=== PATIENT | male | born 1995 | race Caucasian/White ===

== ENCOUNTER 2020-04-17 23:33 | Emergency (ER) | payer OTHER, MEDICAID, SELFPAY ==
[2020-04-17 23:35] VITALS: BP 154/71; PULSE 107; RESP 16; TEMP 36.7; O2SAT 97; BMI 21.7
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
[2020-04-17 23:57] VITALS: BP 111/59; PULSE 73; RESP 14; O2SAT 96
[2020-04-18 01:45] VITALS: BP 110/88; PULSE 96; RESP 18; O2SAT 96
== END 2020-04-18 01:47 | disposition home or self-care (01) ==
PROVIDERS: Emergency Provider Physician Assistant
DX: S29.012A Strain of muscle and tendon of back wall of thorax, initial encounter (principal); S16.1XXA Strain of muscle, fascia and tendon at neck level, initial encounter; V89.2XXA Person injured in unspecified motor-vehicle accident, traffic, initial encounter
CPT/HCPCS: 12345; 70450; 72125; 72128; 72131; 99282; 99283

== ENCOUNTER 2020-07-04 21:49 | Emergency (ER) | payer MEDICAID, SELFPAY ==
[2020-07-04 22:28] VITALS: BP 126/75; PULSE 68; RESP 16; TEMP 36.8; O2SAT 98; BMI 23.0
--- NOTE | 2020-07-04 22:48 | ED_ITS ---
HPI - COVID General: Chief Complaint: COVID symptoms Stated Complaint: covid symptoms/sob Time Seen by Provider: 07/04/20 22:33 Triage information: Has fever, cough or shortness of breath . Exposure to COVID + person last 14 days History of Present Illness: HPI Narrative: Patient is a 24-year-old male comes to the ED exposure to Covid positive patient. Patient says that one of his close family members was diagnosed with Covid today and he has been in contact with Covid positive patient multiple times in the past week at his home. The only symptoms he reports are some fatigue he had mild episodes of shortness of breath. COVID 19 common symptoms: positive dyspnea (Episodic and mild), fatigue and headache(s) (mild); negative fever(s), chills, non-productive cough, productive cough, throat pain, nasal congestion, nausea, vomiting or diarrhea COVID 19 other sytmptoms: negative chest pain COVID Results: SARS-CoV-2 RNA (RT-PCR) Pending 07/04/20 23:10 07/04/20 Review of Systems Const: Reports: fatigue; Denies: fever(s) or chills Eyes: Denies: change in vision or eye discomfort ENMT: Denies: throat pain, odynophagia, nasal discharge or nasal congestion Card: Denies: chest pain, palpitations, edema, swelling of feet/ankles, dyspnea on exertion or orthopnea Resp: Reports: dyspnea (Episodic and mild); Denies: productive cough or non-productive cough GI: Denies: abdominal pain, nausea, vomiting, diarrhea, constipation or hematochezia : Denies: flank pain, difficulty urinating, dysuria or hematuria Musc: Denies: neck pain, back pain or extremity swelling Skin/Breast: Denies: rash or new lesions Neuro: Reports: headache(s) (mild); Denies: numbness in extremities or weakness in extremities PFSH ED PFSH: Social History Smoking and tobacco status: never smoked Alcohol intake: never Physical Exam Const: COMMON NORMALS: no acute distress, patient oriented x3, healthy appearing and alert GENERAL APPEARANCE: cooperative and comfortable HENMT: COMMON NORMALS: normocephalic HEAD & SCALP: normocephalic MOUTH: Normal oral and palatal mucosa present THROAT: posterior oropharynx normal and uvula midline Neck/C-Spine: COMMON NORMALS: supple GENERAL: Yes normal visual inspection Resp: COMMON NORMALS: normal respiratory effort, No retractions, No use of accessory muscles and clear to auscultation bilaterally EFFORT & INSPECTION: Yes able to speak in complete sentences, No tachypneic, No respiratory distress and No Actively coughing AUSCULTATION: clear to auscultation bilaterally Cardio: COMMON NORMALS: regular rate, regular rhythm, S1 normal heart sound present, S2 normal heart sound present, No gallops present (Cardio), No clicks present (Cardio), No murmurs present (Cardio) and Peripheral pulses 2+ throughout RATE: regular rate RHYTHM: regular rhythm HEART SOUNDS: S1 normal heart sound present and S2 normal heart sound present PERIPHERAL PULSES: Peripheral pulses 2+ throughout GI: COMMON NORMALS: Normal to inspection, nondistended, normoactive bowel sounds present, Soft to palpation, non-tender and no masses PALPATION: Yes Soft to palpation : COMMON NORMALS: Yes no CVA tenderness BLADDER/KIDNEY EXAM: Yes no CVA tenderness Back/Pelvis: COMMON NORMALS: no CVA tenderness Extremity: COMMON NORMALS: normal to inspection and no pedal edema Neuro: COMMON NORMALS: patient oriented x3 and moves all extremities SENSORIUM/ORIENTATION: Yes alert Skin: GENERAL SKIN EXAM: dry skin Course ED course: Patient is a 24-year-old male who comes to the ED after being exposed to a positive COVID-19 patient. He has had multiple interactions with positive Covid patient in the past week. Reports having some symptoms of fatigue and symptoms shortness of breath. Physical exam was unremarkable and patient's lungs were clear to auscultation bilaterally with no active coughing seen or tachypnea. Patient appears healthy. Temp 98.2 O2 sat 98% on room air. Respirations 16. Patient was given COVID-19 test and discharged. He was told to self quarantine for the next 3 to 14 days pending results. Return to ED precautions given. Sent patient home with an albuterol inhaler to help with any shortness of breath or wheezing. Patient understood and agreed with plan. Vital Signs: Vital signs: Vital Signs Temperature 98.2 F 07/04/20 22:28 Pulse Rate 67 07/04/20 23:55 Respiratory Rate 16 07/04/20 23:55 Blood Pressure 123/60 07/04/20 23:55 Pulse Oximetry 98 07/04/20 23:55 MDM - COVID Lab Data COVID Results: SARS-CoV-2 RNA (RT-PCR) Pending 07/04/20 23:10 07/04/20 Discharge Plan Discharge Patient Disposition: Home Clinical Impression: Close exposure to COVID-19 virus Condition: Stable Prescriptions: New albuterol sulfate 90 mcg/actuation aerosol powdr breath activated 2 inh INHALATION Q6H PRN (Reason: shortness of breath or wheezing) Qty: 1 RF: 0 No Action cephalexin [Keflex] 500 mg capsule 500 mg PO BID 10 Days Qty: 20 RF: 0 nystatin 100,000 unit/mL suspension 1 ml BUCCAL TID 7 Days Qty: 21 RF: 0 cyclobenzaprine 10 mg tablet 10 mg PO TID Qty: 14 RF: 0 ibuprofen 800 mg tablet 800 mg PO Q8H PRN (Reason: pain) Qty: 20 RF: 0 Discharge Orders: Discharge Order (Routine); Ordered 07/04/20 Ordered By: Sandor Powers Discharge Diet: Regular Discharge Activity: Limit activity as instructed Activity Restrictions/Additional Instructions: Follow-up with medical provider as directed in 7-10 days. COVID testing was performed and sent to lab and results will be back in 2 to 3 days. Self quarantine for the next 3 days or up to 12 days pending on COVID testing results. Contact [facility] in 2 to 3 days to get results or [facility] will contact you with results. Take ibuprofen or Tylenol for fevers. Drink plenty of fluids and stay hydrated. Symptom management with [id number] cough and nasal decongestant meds. Return to the ER or your medical provider if condition worsens. Please read and understand discharge instructions. If any questions, please ask. Discharge Date/Time: 07/04/20 23:56 Coding Level of Care Code ED Supervisor Fertilizer Processing for Nik Marquez Exam Comprehensive
[2020-07-04 23:03] VITALS: BP 123/60; PULSE 67; RESP 16; O2SAT 98
[2020-07-04 23:55] VITALS: BP 123/60; PULSE 67; RESP 16; O2SAT 98
[2020-07-06 20:27] LABS: Quest SARS-CoV-2 RNA NOT DETECTED (NOT DETECTED)
--- NOTE | 2020-07-07 09:03 | PC.NURSE ---
Patient notified of COVID results at this time.
== END 2020-07-04 23:56 | disposition home or self-care (01) ==
PROVIDERS: Emergency Provider Physician Assistant
DX: Z20.828 Contact with and (suspected) exposure to other viral communicable diseases (principal)
CPT/HCPCS: 12345; 87635; 99282

== ENCOUNTER 2020-11-01 18:05 | Emergency (ER) | payer OTHER, SELFPAY ==
[2020-11-01 18:10] VITALS: BP 162/72; PULSE 88; PULSE 90; RESP 14; RESP 18; TEMP 36.8; O2SAT 97; O2SAT 98; BMI 25.0
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
[2020-11-01 18:42] LABS: Basophils % 0.2 %; Eosinophils # 0.1 10^3/uL (0.0-0.8); Eosinophils % 1.1 %; Hematocrit 43.4 % (42.0-52.0); Hemoglobin 15.3 g/dL (11.7-16.6); Lymphocytes # 1.9 10^3/uL (0.8-4.8); Lymphocytes % 30.4 %; Mean Corpuscular HGB Conc 35.3 g/dL (30.0-36.0); Mean Platelet Volume 11.1 fL (7.4-10.4); Monocytes # 0.5 10^3/uL (0.2-0.9); Monocytes % 8.1 %; Neutrophils # 3.69 10^3/uL (1.8-7.7); Neutrophils % 59.9 %; Nucleated Red Blood Cells % 0 %; Platelet Count 164 10^3/cmm (130-400); Red Blood Count 4.93 10^6/uL (4.1-5.3); Red Cell Distribution Width 11.4 % (12.1-15.1); White Blood Count 6.2 10^3/uL (4.0-10.0)
[2020-11-01 18:59] LABS: INR 1.01 (0.8-1.2)
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
[2020-11-01 19:05] LABS: Alanine Aminotransferase 24 U/L (0-41); Albumin Level 4.4 g/dL (3.5-5.2); Alkaline Phosphatase 78 IU/L (40-130); Anion Gap 11.4 (5-19); Aspartate Amino Transferase 22 U/L (0-40); Blood Urea Nitrogen 13 mg/dL (6-20); Calcium 9.1 mg/dL (8.5-10.5); Carbon Dioxide 27 mmol/L (22-29); Chloride 103 mmol/L (98-107); Globulin 2.8 g/dL (1.3-4.6); Glomerular Filtration Rate 105.5 mL/min (90-130); Glucose 96 mg/dL (65-115); Osmolality Calculated 286 mOsm/kg (285-295); Potassium 3.4 mmol/L (3.5-5.1); Sodium 138 mmol/L (136-145); Total Bilirubin 0.2 mg/dL (0.15-1.2); Total Protein 7.2 g/dL (6.6-8.7)
[2020-11-01] MEDS: acetaminophen 500 mg Tablet 1000 MG PO (19:12)
[2020-11-01 20:01] LABS: Add Urine Microscopic? NO
[2020-11-01 20:09] LABS: Bilirubin Urine Neg (Negative); Blood Urine Neg (Negative); Glucose Urine UA Norm (Normal); Ketones Urine Negative (Negative); Leukocyte Esterase Urine Negative (Negative); Nitrate Urine Negative (Negative); Protein Urine Neg (Negative); Sulfosalicylic Acid Urine Negative (Negative); Urine Appearance Clear (CLEAR); Urine Color Yellow (Yellow); Urobilinogen Urine Norm (Negative); pH Urine 8 (5-7)
[2020-11-01 20:17] VITALS: BP 131/71; PULSE 98; RESP 16; O2SAT 98
== END 2020-11-01 20:18 | disposition home or self-care (01) ==
PROVIDERS: Emergency Provider Family Medicine
DX: S13.4XXA Sprain of ligaments of cervical spine, initial encounter (principal); S06.0X0A Concussion without loss of consciousness, initial encounter; S29.012A Strain of muscle and tendon of back wall of thorax, initial encounter; S39.012A Strain of muscle, fascia and tendon of lower back, initial encounter; V89.2XXA Person injured in unspecified motor-vehicle accident, traffic, initial encounter
CPT/HCPCS: 12345; 70450; 72070; 72072; 72100; 72125; 80053; 81003; 85025; 85610; 99281; 99283

== ENCOUNTER 2020-11-23 12:37 | Outpatient (RCR) | payer OTHER, SELFPAY | END 2020-12-21 23:59 | disposition home or self-care (01) | LOC: SPT 12:37 | PROVIDERS: PCP Family Medicine; Referring Provider Nurse Practitioner Family; Visit Provider Nurse Practitioner Family | DX: S16.1XXD Strain of muscle, fascia and tendon at neck level, subsequent encounter (principal); X58.XXXD Exposure to other specified factors, subsequent encounter | CPT/HCPCS: 97161 ==

== ENCOUNTER 2021-04-16 17:15 | Emergency (ER) | payer BC, MEDICAID, SELFPAY ==
[2021-04-16 17:44] VITALS: BP 148/87; PULSE 62; RESP 19; TEMP 37.2; O2SAT 98; BMI 27.1
[2021-04-16 18:18] VITALS: BP 137/59; PULSE 65; RESP 18; O2SAT 97
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
--- NOTE | 2021-04-16 18:31 | ECG_ITS ---
[facility] ED Test Date: 2021-04-16 Pat Name: Omar Murphy Department: Room: Gender: Male [employer] Head: : 1995 Requested By: Maximo Gibbons Order Number: [id number] Jaquez MD: Corazon Rodriguez M.D. Measurements Intervals [place] Rate: 67 P: 44 IN: 204 QRS: 44 QRSD: 94 T: 31 QT: 369 QTc: 392 Interpretive Statements SINUS RHYTHM ST ELEVATION, PROBABLY EARLY REPOLARIZATION [ST ELEVATION WITH NORMALLY INFLECTED T WAVE] Compared to ECG 03/16/2016 11:01:26 Sinus bradycardia no longer present First degree AV block no longer present ST (T wave) deviation still present Electronically Signed On 04-17-2021 22:14:28 CDT by Corazon Rodriguez M.D. [id number]
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
[2021-04-16 19:32] VITALS: BP 147/56; PULSE 63; RESP 15; TEMP 36.9; O2SAT 99
== END 2021-04-16 19:33 | disposition home or self-care (01) ==
PROVIDERS: Emergency Provider Nurse Practitioner Family; PCP Family Medicine
DX: M54.6 Pain in thoracic spine (principal)
CPT/HCPCS: 71046; 93005; 99283

== ENCOUNTER 2021-09-02 18:43 | Emergency (ER) | payer BC, MEDICAID, SELFPAY ==
[2021-09-02 18:55] VITALS: BP 125/71; PULSE 58; RESP 16; TEMP 36.6; O2SAT 98; BMI 24.4
--- NOTE | 2021-09-02 19:20 | W.ED.DENTAL ---
HPI - Dental/Oral General: Chief complaint: Dental/Oral Stated complaint: Tooth Pain Root exposed Time Seen by Provider: 09/02/21 19:05 History of Present Illness: HPI Narrative: Patient is a 25-year-old male comes to the ED with dental pain. Dental pain is located around tooth #5 and #6. Patient says he is been dealing with this dental pain for the past 2 days. He rates the pain currently a 10 out of 10. He is currently calling around to get set up with a dentist. Associated symptoms: Denies fever(s) or odynophagia Review of Systems Const: Denies: fever(s), chills or fatigue Eyes: Denies: change in vision or eye discomfort ENMT: Reports: dental pain; Denies: throat pain, odynophagia, nasal discharge or nasal congestion Card: Denies: chest pain, palpitations, edema, swelling of feet/ankles, dyspnea on exertion or orthopnea Resp: Denies: dyspnea, productive cough or non-productive cough GI: Denies: abdominal pain, nausea, vomiting, diarrhea, constipation or hematochezia : Denies: flank pain, difficulty urinating, dysuria or hematuria Musc: Denies: neck pain, back pain or extremity swelling Skin/Breast: Denies: rash or new lesions Neuro: Denies: headache(s), numbness in extremities or weakness in extremities PFSH ED PFSH: Social History Smoking and tobacco status: never smoked Alcohol intake: never Physical Exam Const: COMMON NORMALS: no acute distress, patient oriented x3, healthy appearing and alert GENERAL APPEARANCE: cooperative and comfortable HENMT: COMMON NORMALS: normocephalic HEAD & SCALP: normocephalic MOUTH: Normal oral and palatal mucosa present TEETH & GINGIVA: Yes caries (Extensive dental decay on teeth #5 and 6) and Yes poor dentition THROAT: posterior oropharynx normal and uvula midline Neck/C-Spine: COMMON NORMALS: supple GENERAL: Yes normal visual inspection Resp: COMMON NORMALS: normal respiratory effort, No retractions, No use of accessory muscles and clear to auscultation bilaterally AUSCULTATION: clear to auscultation bilaterally Cardio: COMMON NORMALS: regular rate, regular rhythm, S1 normal heart sound present, S2 normal heart sound present, No gallops present (Cardio), No clicks present (Cardio), No murmurs present (Cardio) and Peripheral pulses 2+ throughout RATE: regular rate RHYTHM: regular rhythm HEART SOUNDS: S1 normal heart sound present and S2 normal heart sound present PERIPHERAL PULSES: Peripheral pulses 2+ throughout GI: COMMON NORMALS: Normal to inspection, nondistended, normoactive bowel sounds present, Soft to palpation, non-tender and no masses PALPATION: Yes Soft to palpation : COMMON NORMALS: Yes no CVA tenderness BLADDER/KIDNEY EXAM: Yes no CVA tenderness Back/Pelvis: COMMON NORMALS: no CVA tenderness Extremity: COMMON NORMALS: normal to inspection Neuro: COMMON NORMALS: patient oriented x3 and moves all extremities SENSORIUM/ORIENTATION: Yes alert Skin: GENERAL SKIN EXAM: dry skin Course Vital Signs: Vital signs: Vital Signs Temperature 97.8 F 09/02/21 18:55 Pulse Rate 58 L 09/02/21 18:55 Respiratory Rate 16 09/02/21 19:45 Blood Pressure 125/71 09/02/21 18:55 Pulse Oximetry 98 09/02/21 18:55 MDM - Dental/Oral MDM Narrative: Medical decision making narrative: Patient is a 25-year-old male comes to the ED with dental pain. Symptoms started approximately 2 days ago. Exam shows poor dentition with extensive dental decay on teeth numbers 5 and 6. Patient was given a dose of clindamycin and hydrocodone to help with pain while here in the ED. He was diagnosed with pain due to dental caries discharged home with a prescription for clindamycin and Celebrex for pain. He was told to set up an appoint with dentist for further evaluation. Return to ED precautions given. Patient stood agree with plan. Discharge Plan Discharge Patient Disposition: Home Clinical Impression: Pain due to dental caries Condition: Stable Prescriptions: New clindamycin HCl 150 mg capsule 300 mg PO QID 7 Days Qty: 56 RF: 0 Celebrex 100 mg capsule 100 mg PO BID Qty: 20 RF: 0 No Action No Known Home Medications RF: 0 Discharge Orders: Discharge ED (Routine); Ordered 09/02/21 Ordered By: Sandor Powers Referrals: Tristin Martinez MD [Primary Care Provider] - Discharge Diet: Regular Discharge Activity: Resume usual activity Patient Instructions: Dental Caries (Cavities) Activity Restrictions/Additional Instructions: Follow-up with dentist for further evaluation. Take medications as prescribed. Return to the ER or your medical provider if condition worsens. Please read and understand discharge instructions. Thank you for choosing [facility] for your healthcare needs today. Please realize this is an emergency room and that we are providing you with a medical screening exam and this may not be complete and all inclusive of all the testing and or work up that you may need to determine your ailment or severity of your illness. It is very important that you follow up as instructed or that you return to the Emergency Department should you have concerns or if your condition changes or worsens in any way. Coding Level of Care Code ED Perinatology Physician for Nik Fwd Exam Comprehensive
[2021-09-02] MEDS: HYDROcodone-acetaminophen 7.5-325 mg Tablet 1 TAB PO (19:43)
[2021-09-02] MEDS: clindamycin 150 mg Capsule 300 MG PO (19:43)
[2021-09-02 19:45] VITALS: RESP 16
== END 2021-09-02 19:45 | disposition home or self-care (01) ==
PROVIDERS: Emergency Provider Physician Assistant; PCP Family Medicine
DX: K02.9 Dental caries, unspecified (principal)
CPT/HCPCS: 99283

== ENCOUNTER 2022-03-21 14:27 | Emergency (ER) | payer BC, MEDICAID, SELFPAY ==
--- NOTE | 2022-03-21 14:36 | XR_ITS ---
WS: [id number] RIGHT HAND: 3 VIEW(S) TECHNIQUE: PA, oblique and lateral. HISTORY: injury COMPARISON: None available. No acute fracture or dislocation. No soft tissue or bone abnormality. XR/XR hand RT min 3V* [id number] IMPRESSION: Normal RIGHT hand.
[2022-03-21 15:05] VITALS: BP 113/60; PULSE 63; RESP 16; TEMP 36.8; O2SAT 97; BMI 21.7
--- NOTE | 2022-03-21 15:55 | ED_ITS ---
HPI - Extremity Injury (Upper) General: Chief Complaint: Extremity Injury, Upper Stated Complaint: Right hand injury Time Seen by Provider: 03/21/22 15:54 PFSH ED PFSH: Social History Smoking and tobacco status: never smoked Alcohol intake: never Course Vital Signs: Vital signs: Vital Signs Temperature 98.2 F 03/21/22 15:05 Pulse Rate 63 03/21/22 15:05 Respiratory Rate 16 03/21/22 15:05 Blood Pressure 113/60 03/21/22 15:05 Pulse Oximetry 97 03/21/22 15:05 MDM - Extremity Injury (Upper) Lab Data Radiology Impressions Hand X-Ray 03/21/22 14:36 IMPRESSION: Normal RIGHT hand. Discharge Plan Discharge Condition: Stable Prescriptions: No Action No Known Home Medications 0RF Celebrex 100 mg capsule 100 mg PO BID Qty: 20 0RF Referrals: Tristin Martinez MD [Primary Care Provider] - Coding Level of Care Code ED O And M Supervisor for Nik Marquez
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
== END 2022-03-21 16:34 | disposition home or self-care (01) ==
PROVIDERS: Emergency Provider Physician Assistant; PCP Family Medicine
DX: S60.221A Contusion of right hand, initial encounter (principal); W22.09XA Striking against other stationary object, initial encounter
CPT/HCPCS: 73130; 99283

== ENCOUNTER 2022-05-24 14:35 | Emergency (ER) | payer BC, MEDICAID, SELFPAY ==
[2022-05-24 14:42] VITALS: BP 131/67; PULSE 63; RESP 16; TEMP 36.9; O2SAT 98
[2022-05-24] MEDS: neomycin-poly-bacitracin oint 28 gm 1 APPLIC TOPICAL (15:16)
[2022-05-24 15:36] VITALS: BP 132/78; O2SAT 99
--- NOTE | 2022-05-24 15:42 | W.ED.WOUNDLC ---
Documented by User: TIP Finley 05/24/22 20:51 HPI - Wound/Laceration General: Chief Complaint: Wound/Laceration Stated Complaint: L hand injury Time Seen by Provider: 05/24/22 14:48 History of Present Illness: This is a 26-year-old male patient that is in today for a laceration of his left thumb. He reports that he was at work approximately 1130 this morning and using a knife to chop lettuce he sliced his left thumb nailbed. He reports that he cannot get it to stop bleeding. He reports that he has not had a tetanus vaccination in the past 10 years. Review of Systems Narrative: Patient is alert and oriented x3. He is in no acute distress however he does have pain to his left thumb. He is holding gauze to that area now to stop the bleeding. Skin/Breast: Reports: other (Bleeding laceration to left thumb nailbed) [facility] ED PFSH: Social History Smoking and tobacco status: never smoked Alcohol intake: never Physical Exam Const: COMMON NORMALS: no acute distress, patient oriented x3 and alert Resp: COMMON NORMALS: clear to auscultation bilaterally EFFORT & INSPECTION: Yes symmetric chest movement AUSCULTATION: clear to auscultation bilaterally Cardio: COMMON NORMALS: regular rate, regular rhythm, S1 normal heart sound present and S2 normal heart sound present RATE: regular rate RHYTHM: regular rhythm HEART SOUNDS: S1 normal heart sound present and S2 normal heart sound present Extremity: LEFT UPPER EXTREMITY: Yes hand & digits (Left thumb nailbed exposed and bleeding) OTHER: The left thumbnail is missing the nailbed is exposed with a continuous ooze of blood noted. Pressure is applied bleeding is controlled. 2 cc 1% lidocaine used for digital block so the patient is able to tolerate direct pressure. Arm is elevated. Reevaluated after 10 to 15 minutes of direct pressure having been applied and bleeding had not slowed. Pressure dressing reapplied for an additional 15-20 minutes. Bleeding continues. I consulted with Dr. Shah. Neuro: COMMON NORMALS: patient oriented x3 SENSORIUM/ORIENTATION: Yes alert Course Vital Signs: Vital signs: Vital Signs Temperature 98.4 F 05/24/22 14:42 Pulse Rate 78 05/24/22 17:21 Respiratory Rate 16 05/24/22 14:42 Blood Pressure 130/68 05/24/22 17:21 Pulse Oximetry 99 05/24/22 15:36 Oxygen Delivery Me thod 05/24/22 14:42 MDM - Wound/Laceration Medical Decision Making 26-year-old male patient in for laceration left thumb nail bed. Patient was having continuous bleeding from the nailbed which appeared to be arterial. Dr. Shah consulted and came in to assist with placing sutures to control bleeding. Patient tolerated well. Bleeding was controlled with suture placement. Area was cleaned and a dressing was applied. Advised patient of aftercare for sutures. He will need to follow-up with his primary care provider next week to have sutures removed. Remove sutures approximately 5 to 7 days after placement. Keep the area clean and dry. Patient declines needing a note for work. He reports that this did happen at his work but he is unsure if he will be doing Workman's Comp. advised patient signs and symptoms of infection. Prescribed antibiotics for prophylaxis. Tdap administered today as patient had not had tetanus vaccination in greater than 10 years. Patient is not interested in following up with a hand surgeon at this time. Patient verbalized understanding of all discharge instructions. Discharge Plan Discharge Patient Disposition: Home Clinical Impression: Laceration of finger of left hand, Sutured skin wound Condition: Stable Prescriptions: No Action Celebrex 100 mg capsule 100 mg PO BID Qty: 20 0RF Discharge Orders: Discharge ED (Routine); Ordered 05/24/22 Ordered By: Cherrie Stratton Discharge Diet: Usual diet Discharge Activity: Resume usual activity Patient Instructions: Stitches Removal (ED) Activity Restrictions/Additional Instructions: Keep your dressing intact tonight. You may remove it after 24 hours. Keep the wound clean and dry. No soaking in in a tub, hot tub, swimming, river or sandy water. Call tomorrow to make an appointment with your primary care provider for next week to have sutures removed. Take antibiotic as directed. Monitor closely for signs of infection including increased redness, swelling, pain, oozing or drainage from the site. Follow-up with PCP or in the emergency department should you notice any worsening symptoms. You did receive your Tdap immunization today Coding Level of Care Code ED Business Mgr for Chg Fwd Exam Expanded Problem Focused Documented by User: Eugene Shah MD 06/03/22 20:49 HPI - Wound/Laceration General: Chief Complaint: Wound/Laceration Stated Complaint: L hand injury Time Seen by Provider: 05/24/22 14:48 PFSH ED PFSH: Social History Smoking and tobacco status: never smoked Alcohol intake: never Procedures Laceration Laceration 1: Site: hand Side (If applicable): left Size (cm): 2 Description: other Depth: involves muscle layer Local Anesthetic: lidocaine 1% Amount of anesthesia used (mL): 3 Pre-repair: irrigated extensively Skin layer closed with: nylon Size (cm): 5-0 Number of sutures: 3 Technique: simple, interrupted Course Vital Signs: Vital signs: Vital Signs Temperature 98.4 F 05/24/22 14:42 Pulse Rate 78 05/24/22 17:21 Respiratory Rate 16 05/24/22 14:42 Blood Pressure 130/68 05/24/22 17:21 Pulse Oximetry 99 05/24/22 15:36 Oxygen Delivery Me thod 05/24/22 14:42 MDM - Wound/Laceration Medical Decision Making 26-year-old male patient in for laceration left thumb nail bed. Patient was having continuous bleeding from the nailbed which appeared to be arterial. Dr. Shah consulted and came in to assist with placing sutures to control bleeding. Patient tolerated well. Bleeding was controlled with suture placement. Area was cleaned and a dressing was applied. Advised patient of aftercare for sutures. He will need to follow-up with his primary care provider next week to have sutures removed. Remove sutures approximately 5 to 7 days after placement. Keep the area clean and dry. Patient declines needing a note for work. He reports that this did happen at his work but he is unsure if he will be doing Workman's Comp. advised patient signs and symptoms of infection. Prescribed antibiotics for prophylaxis. Tdap administered today as patient had not had tetanus vaccination in greater than 10 years. Patient is not interested in following up with a hand surgeon at this time. Patient verbalized understanding of all discharge instructions. I discussed this case with Cherrie Stratton NP. I personally saw and evaluated the patient. Patient appears to have persistent small arterial bleeding from a laceration of the nailbed. 3 sutures placed for hemostasis which was adequate after placement. I reviewed documentation. Eugene Shah MD Emergency Medicine Discharge Plan Discharge Patient Disposition: Home Clinical Impression: Laceration of finger of left hand, Sutured skin wound Condition: Stable Prescriptions: No Action Celebrex 100 mg capsule 100 mg PO BID Qty: 20 0RF Discharge Orders: Discharge ED (Routine); Ordered 05/24/22 Ordered By: Cherrie Stratton Discharge Diet: Usual diet Discharge Activity: Resume usual activity Patient Instructions: Stitches Removal (ED) Activity Restrictions/Additional Instructions: Keep your dressing intact tonight. You may remove it after 24 hours. Keep the wound clean and dry. No soaking in in a tub, hot tub, swimming, river or sandy water. Call tomorrow to make an appointment with your primary care provider for next week to have sutures removed. Take antibiotic as directed. Monitor closely for signs of infection including increased redness, swelling, pain, oozing or drainage from the site. Follow-up with PCP or in the emergency department should you notice any worsening symptoms. You did receive your Tdap immunization today Coding Level of Care Code ED Business Mgr for Chg Fwd Exam Expanded Problem Focused
[2022-05-24] MEDS: tetanus-dipt-pertussis 0.5 mL SDV IM (16:00)
[2022-05-24 17:21] VITALS: BP 130/68; PULSE 78
== END 2022-05-24 17:23 | disposition home or self-care (01) ==
PROVIDERS: Emergency Provider Nurse Practitioner Family; PCP Family Medicine
DX: S61.012A Laceration without foreign body of left thumb without damage to nail, initial encounter (principal); W26.0XXA Contact with knife, initial encounter; Y99.0 Civilian activity done for income or pay; Z23 Encounter for immunization
CPT/HCPCS: 12001; 90471; 90715; 99283

== ENCOUNTER 2023-04-07 15:48 | Emergency (ER) | payer BC, MEDICAID, SELFPAY ==
[2023-04-07 15:51] VITALS: BP 103/53; PULSE 43; RESP 22; TEMP 36.8; O2SAT 97; BMI 20.3
--- NOTE | 2023-04-07 16:01 | ED_ITS ---
HPI - Chest Pain General: Chief Complaint: Chest Pain Stated Complaint: Pt states he has a heart condition and high BP Time Seen by Provider: 04/07/23 16:01 History of Present Illness: Patient presents to the ER with complaints of chest pain, slow heart rate and feels like he got a pass out. Patient states he does have a heart condition and high blood pressure. Patient states he is all started earlier today. Patient says that he is try to get some teeth pulled 2 or 3 times in the last month and they would not pull him due to his high blood pressure. Patient is not on any current medicine at this time. Denies any allergies. Patient not actively having any chest pain but is diaphoretic and feels like he is going to pass out. Review of Systems General: Reports: 10 or more systems reviewed and unremarkable except in HPI and below PFSH ED PFSH: Social History Smoking and tobacco status: never smoked Alcohol intake: never Substance/Drug Use: never Physical Exam Const: COMMON NORMALS: no acute distress, average body habitus, patient oriented x3, no limitations, healthy appearing, alert and well nourished HENMT: COMMON NORMALS: normocephalic, atraumatic, hearing grossly normal bilaterally, external ears normal, Normal external nose present and moist oral mucous membranes HEAD & SCALP: normocephalic and atraumatic NOSE: Normal external nose present EXTERNAL EAR: Yes external ears normal Neck/C-Spine: COMMON NORMALS: full ROM, no lymphadenopathy, supple, no meningeal signs, no JVD and Thyroid normal THYROID: Thyroid normal Chest: COMMONS NORMALS: normal inspection of the chest and normal palpation of entire chest wall Resp: COMMON NORMALS: normal respiratory effort, No retractions, No use of accessory muscles and clear to auscultation bilaterally AUSCULTATION: clear to auscultation bilaterally Cardio: COMMON NORMALS: no JVD, regular rhythm, S1 normal heart sound present and S2 normal heart sound present; negative for regular rate (Bradycardic) RATE: abnormal rate (Bradycardic) RHYTHM: regular rhythm HEART SOUNDS: S1 normal heart sound present and S2 normal heart sound present GI: COMMON NORMALS: Normal to inspection, nondistended, normoactive bowel sounds present, Soft to palpation, non-tender, No hepatosplenomegaly present and no masses PALPATION: Yes Soft to palpation and Yes No hepatosplenomegaly present : COMMON NORMALS: Yes no CVA tenderness BLADDER/KIDNEY EXAM: Yes no CVA tenderness Back/Pelvis: COMMON NORMALS: no CVA tenderness Neuro: COMMON NORMALS: patient oriented x3 SENSORIUM/ORIENTATION: Yes alert MENINGEAL SIGNS: Yes no meningeal signs Skin: NARRATIVE SKIN EXAM: Diaphoretic Course Vital Signs: Vital signs: Vital Signs Temperature 98.3 F 04/07/23 15:51 Pulse Rate 69 04/07/23 18:20 Respiratory Rate 16 04/07/23 18:20 Blood Pressure 97/46 04/07/23 18:20 Pulse Oximetry 98 04/07/23 18:20 Oxygen Delivery Me thod Room Air 04/07/23 18:20 MDM - Chest Pain Medical Decision Making Patient presents with chest pain and symptomatic bradycardia. Patient says he has known heart problems. Patient was diaphoretic upon arrival and bradycardia down to about 43 beats a minute. Since then patient has been up in the 60s and 70s. Patient has been chest pain-free his entire stay here. Lab work was obtained EKGs and chest x-ray. Consult to case management will be placed for outpatient Holter monitor secondary to symptomatic bradycardia. Patient will be discharged home to follow-up with his primary care doctor. Differential Diagnosis Unlikely acute massive pulmonary embolism, acute respiratory failure, acute myocardial infarction, cardiac arrest or sudden cardiac Medical Records I reviewed the patient's medical records. Lab Data I reviewed the patient's lab results. 04/07/23 15:37 04/07/23 15:37 Radiology Impressions Chest X-Ray 04/07/23 16:02 IMPRESSION: No acute findings. Laboratory Results WBC 8.4 10^3/uL (4.0-10.0) 04/07/23 15:37 RBC 4.87 10^6/uL (4.1-5.3) 04/07/23 15:37 Hgb 15.7 g/dL (11.7-16.6) 04/07/23 15:37 Hct 44.1 % (42.0-52.0) 04/07/23 15:37 MCV 90.6 fl (80-94) 04/07/23 15:37 MCH 32.2 pg (28.0-34.0) 04/07/23 15:37 MCHC 35.6 g/dL (30.0-36.0) 04/07/23 15:37 RDW 11.9 % (12.1-15.1) L 04/07/23 15:37 Plt Count 157 10^3/cmm (130-400) 04/07/23 15:37 MPV 10.9 fL (7.4-10.4) H 04/07/23 15:37 Neut % (Auto) 52.1 % 04/07/23 15:37 Lymph % (Auto) 40.2 % 04/07/23 15:37 [place] % (Auto) 6.3 % 04/07/23 15:37 Eos % (Auto) 0.5 % 04/07/23 15:37 Baso % (Auto) 0.5 % 04/07/23 15:37 Neut # (Auto) 4.38 10^3/uL (1.8-7.7) 04/07/23 15:37 Lymph # (Auto) 3.4 10^3/uL (0.8-4.8) 04/07/23 15:37 [place] # (Auto) 0.5 10^3/uL (0.2-0.9) 04/07/23 15:37 Eos # (Auto) 0.0 10^3/uL (0.0-0.8) 04/07/23 15:37 Baso # (Auto) 0.0 10^3/uL (0.0-0.1) 04/07/23 15:37 Nucleated RBC % (auto) 0 % 04/07/23 15:37 Nucleated RBCs # 0.0 /100WBC 04/07/23 15:37 PT 12.70 SECONDS (12.1-14.9) 04/07/23 15:37 INR 0.93 (0.8-1.2) 04/07/23 15:37 Sodium 138 mmol/L (136-145) 04/07/23 15:37 Potassium 3.4 mmol/L (3.5-5.1) L 04/07/23 15:37 Chloride 104 mmol/L (98-107) 04/07/23 15:37 Carbon Dioxide 22 mmol/L (22-29) 04/07/23 15:37 Anion Gap 15.4 (5-19) 04/07/23 15:37 BUN 11 mg/dL (6-20) 04/07/23 15:37 Creatinine 0.9 mg/dL (0.7-1.2) 04/07/23 15:37 GFR Calculation 102.8 mL/min (90-130) 04/07/23 15:37 Glucose 102 mg/dL (65-115) 04/07/23 15:37 Calculated Osmolality 286 mOsm/kg (285-295) 04/07/23 15:37 Calcium 9.5 mg/dL (8.5-10.5) 04/07/23 15:37 Total Bilirubin 0.6 mg/dL (0.15-1.2) 04/07/23 15:37 AST 16 U/L (0-40) 04/07/23 15:37 ALT 12 U/L (0-41) 04/07/23 15:37 Alkaline Phosphatase 73 U/L (40-130) 04/07/23 15:37 Troponin T Baseline 6 ng/L (0-15) 04/07/23 15:37 Troponin T 120 Minute 6.00 ng/L (0-15) 04/07/23 17:28 Total Protein 6.7 g/dL (6.6-8.7) 04/07/23 15:37 Albumin 4.5 g/dL (3.5-5.2) 04/07/23 15:37 Globulin 2.2 g/dL (1.3-4.6) 04/07/23 15:37 Ethyl Alcohol < 10 mg/dL (0-10) 04/07/23 15:37 EKG Data EKG 1: I personally reviewed and interpreted this EKG as follows: EKG interpretation date: 04/07/23 EKG interpretation time: 15:55 Prior EKG tracings: not available for review Interpretation: EKG shows supraventricular bradycardia with ventricular rate of 45 beats a minute, borderline right axis deviation, QRS duration 91, QTc 341, Discharge Plan Discharge Patient Disposition: Home Clinical Impression: Symptomatic bradycardia, Atypical chest pain Condition: Stable Prescriptions: New losartan 50 mg tablet 50 mg PO DAILY Qty: 30 0RF Discharge Orders: Discharge ED (Routine); Ordered 04/07/23 Ordered By: Ta Sanchez Referrals: Vanita Black MD [Hospitalist] - 1-3 days Patient Instructions: Chest Pain (ED), Bradycardia (ED) Activity Restrictions/Additional Instructions: Case management has been consulted to set you up for a 7-day Holter monitor. These results will go to your family practice physician. They will call you probably tomorrow to arrange this. If they have not called you in 2 business days please call them. Coding Level of Care Code ED Unit Coordinator for Nik Marquez
--- NOTE | 2023-04-07 16:02 | ECG_ITS ---
[facility] Test Date: 2023-04-07 Pat Name: Omar Murphy Department: Room: Gender: Male Business Analysis Consultant: : 1995 Requested By: Ta Sanchez Order Number: [id number] Gisele MD: Judith Gunter M.D. Measurements Intervals [place] Rate: 45 P: 0 [place]: 0 QRS: 93 QRSD: 91 T: 47 QT: 387 QTc: 336 Interpretive Statements Possible junctional rhythm BORDERLINE RIGHT AXIS DEVIATION [QRS AXIS > 90] ABNORMAL RHYTHM ECG Compared to ECG 04/16/2021 18:41:41 Sinus rhythm no longer present ST (T wave) deviation no longer present Early repolarization no longer present Electronically Signed On 04-07-2023 21:05:46 CDT by Judith Gunter M.D. [id number]
--- NOTE | 2023-04-07 16:02 | XRR_ITS ---
PROCEDURE INFORMATION: Exam: XR Chest Exam date and time: 04/07/2023 4:14 PM Age: 27 years old Clinical indication: Other: Bradycardia TECHNIQUE: Imaging protocol: Radiologic exam of the chest. Views: 1 view. COMPARISON: CR XR chest 2V* [id number] 04/16/2021 6:55 PM FINDINGS: Tubes, catheters and devices: Pacemaker pads on the lower left chest. Lungs: Unremarkable. No consolidation. Pleural spaces: Unremarkable. No pleural effusion. No pneumothorax. Heart/Mediastinum: Unremarkable. No cardiomegaly. Bones/joints: Unremarkable. XR/XR chest 1V portable [id number] IMPRESSION: No acute findings.
[2023-04-07 16:18] LABS: Basophils % 0.5 %; Eosinophils % 0.5 %; Hematocrit 44.1 % (42.0-52.0); Hemoglobin 15.7 g/dL (11.7-16.6); Lymphocytes # 3.4 10^3/uL (0.8-4.8); Lymphocytes % 40.2 %; Mean Corpuscular HGB Conc 35.6 g/dL (30.0-36.0); Mean Corpuscular Hemoglobin 32.2 pg (28.0-34.0); Mean Corpuscular Volume 90.6 fl (80-94); Mean Platelet Volume 10.9 fL (7.4-10.4); Monocytes # 0.5 10^3/uL (0.2-0.9); Monocytes % 6.3 %; Neutrophils # 4.38 10^3/uL (1.8-7.7); Neutrophils % 52.1 %; Nucleated Red Blood Cells % 0 %; Platelet Count 157 10^3/cmm (130-400); Red Blood Count 4.87 10^6/uL (4.1-5.3); Red Cell Distribution Width 11.9 % (12.1-15.1); White Blood Count 8.4 10^3/uL (4.0-10.0)
[2023-04-07 16:21] LABS: INR 0.93 (0.8-1.2)
[2023-04-07] MEDS: sodium chloride 0.9% 1,000 ML 999 ML IV (16:27)
--- NOTE | 2023-04-07 16:39 | PC.PHAR ---
pt states he takes no rx medications or otc meds because he cant afford his meds-pt states he was prescribed some kind of bp med but states he couldnt afford to get it office is closed on sundays but [facility] states they have an rx on hold for losartan 50mg daily-
[2023-04-07 16:53] LABS: Alanine Aminotransferase 12 U/L (0-41); Albumin Level 4.5 g/dL (3.5-5.2); Alkaline Phosphatase 73 U/L (40-130); Anion Gap 15.4 (5-19); Aspartate Amino Transferase 16 U/L (0-40); Blood Urea Nitrogen 11 mg/dL (6-20); Calcium 9.5 mg/dL (8.5-10.5); Carbon Dioxide 22 mmol/L (22-29); Chloride 104 mmol/L (98-107); Globulin 2.2 g/dL (1.3-4.6); Glomerular Filtration Rate 102.8 mL/min (90-130); Glucose 102 mg/dL (65-115); Osmolality Calculated 286 mOsm/kg (285-295); Potassium 3.4 mmol/L (3.5-5.1); Sodium 138 mmol/L (136-145); Total Bilirubin 0.6 mg/dL (0.15-1.2); Total Protein 6.7 g/dL (6.6-8.7)
[2023-04-07 16:54] LABS: Alcohol Level < 10 mg/dL (0-10)
[2023-04-07 16:55] LABS: Troponin(5th) Baseline 6 ng/L (0-15)
[2023-04-07 17:22] VITALS: BP 90/50; PULSE 64; RESP 18; O2SAT 95
[2023-04-07 17:55] VITALS: BP 103/60; PULSE 66; RESP 20; O2SAT 97
[2023-04-07 18:20] VITALS: BP 97/46; PULSE 69; RESP 16; O2SAT 98
[2023-04-07 18:55] VITALS: BP 118/56; PULSE 62; RESP 18; O2SAT 98
[2023-04-07 18:57] LABS: Troponin 5 2HR Delta 0 ABS# (0-10)
--- NOTE | 2023-04-08 10:09 | DCPLANNER ---
Addendum entered by Lilian Clark 04/18/23 10:09: Patient had a follow up appointment scheduled with heart care - patient did not attend appointment Addendum entered by Lilian Clark 04/10/23 14:02: Patient has an appointment scheduled for Saturday, April 17, 2023 at 9:30 at heart care. Original Note: audit manager had message to schedule a follow up appointment for patient with heart care for a 7 day event monitor. audit manager faxed signed order to centralized scheduling, who will call patient with appointment information.
== END 2023-04-07 18:56 | disposition home or self-care (01) ==
PROVIDERS: Emergency Provider Emergency Medicine; PCP Family Medicine
DX: R07.89 Other chest pain (principal); R00.1 Bradycardia, unspecified
CPT/HCPCS: 36415; 71045; 80053; 80307; 84484; 85025; 85610; 93005; 99285; J7030

== ENCOUNTER 2023-04-17 13:00 | Emergency (ER) | payer BC, MEDICAID, SELFPAY ==
[2023-04-17 13:09] VITALS: BMI 19.6
[2023-04-17 13:10] VITALS: BP 100/61; PULSE 73; RESP 15; TEMP 36.7; O2SAT 97
--- NOTE | 2023-04-17 13:17 | ECG_ITS ---
[facility] Test Date: 2023-04-17 Pat Name: Omar Murphy Department: Room: Gender: Male Regional Director Of Finance: : 1995 Requested By: Kaushik Martell Order Number: [id number] Gisele MD: Judith Gunter M.D. Measurements Intervals [place] Rate: 70 P: 70 NM: 215 QRS: 76 QRSD: 85 T: 63 QT: 347 QTc: 375 Interpretive Statements SINUS RHYTHM WITH FIRST DEGREE AV BLOCK EARLY REPOLARIZATION [ST ELEVATION WITH NORMALLY INFLECTED T-WAVE] Compared to ECG 04/07/2023 15:55:21 First degree AV block now present Early repolarization now present Electronically Signed On 04-17-2023 20:29:17 CDT by Judith Gunter M.D. [id number]
--- NOTE | 2023-04-17 17:12 | W.ED.DIZZY ---
HPI - Dizziness General: Chief Complaint: Dizziness Stated Complaint: dizziness Time Seen by Provider: 04/17/23 17:10 History of Present Illness: HPI Narrative: 27-year-old male patient comes in today for reporting episodes of feeling weak. Patient reports that yesterday he felt well but the day before he did not feel well. Today he went to work and got lightheaded and felt like he was going to pass out. Patient reports a history of bradycardia and first-degree AV block. Patient in the past have been recommended to have a pacemaker when he was 19. Patient refused at the time. Patient was seen about 2 weeks ago in the emergency room and was started on losartan 50 mg due to elevated blood pressure. Patient reports no chest pain but does have palpitations. Patient moves all extremities well. Patient appears nontoxic. Associated symptoms: Reports palpitations; Denies vomiting Review of Systems General: Reports: 10 or more systems reviewed and unremarkable except in HPI and below Card: Reports: palpitations Resp: Denies: dyspnea GI: Reports: constipation; Denies: vomiting : Denies: difficulty urinating Musc: Denies: extremity swelling Skin/Breast: Denies: rash Neuro: Reports: dizziness (With position change) [facility] ED PFSH: Social History Smoking and tobacco status: never smoked Alcohol intake: never Substance/Drug Use: never Physical Exam Const: COMMON NORMALS: patient oriented x3 HENMT: COMMON NORMALS: normocephalic HEAD & SCALP: normocephalic MOUTH: Normal oral and palatal mucosa present Neck/C-Spine: COMMON NORMALS: full ROM Chest: COMMONS NORMALS: normal inspection of the chest Resp: COMMON NORMALS: normal respiratory effort and clear to auscultation bilaterally AUSCULTATION: clear to auscultation bilaterally Cardio: COMMON NORMALS: regular rate and regular rhythm RATE: regular rate RHYTHM: regular rhythm GI: COMMON NORMALS: non-tender : COMMON NORMALS: Yes no CVA tenderness BLADDER/KIDNEY EXAM: Yes no CVA tenderness Back/Pelvis: COMMON NORMALS: no CVA tenderness Extremity: COMMON NORMALS: normal to inspection Neuro: COMMON NORMALS: patient oriented x3 Skin: COMMON NORMALS: turgor normal GENERAL SKIN EXAM: turgor normal Course Vital Signs: Vital signs: Vital Signs Temperature 98.0 F 04/17/23 13:10 Pulse Rate 52 L 04/17/23 18:35 Respiratory Rate 16 04/17/23 18:35 Blood Pressure 108/60 04/17/23 18:35 Pulse Oximetry 98 04/17/23 18:35 Oxygen Delivery Me thod Room Air 04/17/23 18:35 MDM - Dizziness Medical Decision Making 27-year-old male patient comes in today with concerns of feeling like he was going to pass out while at work. Patient appears nontoxic. Lungs are clear to auscultation. No edema is noted in the extremities. Vital signs are normal except for blood pressure being slightly low at 100/60. When patient was here 2 weeks ago he was started on 50 mg of losartan. Differential diagnosis includes orthostatic hypotension, adverse drug effect, anxiety, cardiac arrhythmia. Laboratory values were unremarkable. Troponin showed no significant abnormalities. EKG showed a sinus rhythm with a first-degree block. Patient's orthostatic blood pressures were unremarkable except for when he stood his blood pressure did drop. I suspect patient has had adverse drug effect causing his pressure to drop with sudden movements. This is probably exacerbated in the heat which patient works in during the day. Discussed need for drinking plenty of fluids and follow-up with primary care. Patient reported understanding of care plan and need for follow-up or return to the ER. Lab Data 04/17/23 17:51 04/17/23 17:51 Laboratory Results WBC 7.7 10^3/uL (4.0-10.0) 04/17/23 17:51 RBC 4.60 10^6/uL (4.1-5.3) 04/17/23 17:51 Hgb 15.3 g/dL (11.7-16.6) 04/17/23 17:51 Hct 42.6 % (42.0-52.0) 04/17/23 17:51 MCV 92.6 fl (80-94) 04/17/23 17:51 MCH 33.3 pg (28.0-34.0) 04/17/23 17:51 MCHC 35.9 g/dL (30.0-36.0) 04/17/23 17:51 RDW 11.6 % (12.1-15.1) L 04/17/23 17:51 Plt Count 137 10^3/cmm (130-400) 04/17/23 17:51 MPV 11.0 fL (7.4-10.4) H 04/17/23 17:51 Neut % (Auto) 78.0 % 04/17/23 17:51 Lymph % (Auto) 15.6 % 04/17/23 17:51 [place] % (Auto) 5.6 % 04/17/23 17:51 Eos % (Auto) 0.1 % 04/17/23 17:51 Baso % (Auto) 0.3 % 04/17/23 17:51 Neut # (Auto) 6.04 10^3/uL (1.8-7.7) 04/17/23 17:51 Lymph # (Auto) 1.2 10^3/uL (0.8-4.8) 04/17/23 17:51 [place] # (Auto) 0.4 10^3/uL (0.2-0.9) 04/17/23 17:51 Eos # (Auto) 0.0 10^3/uL (0.0-0.8) 04/17/23 17:51 Baso # (Auto) 0.0 10^3/uL (0.0-0.1) 04/17/23 17:51 Nucleated RBC % (auto) 0 % 04/17/23 17:51 Nucleated RBCs # 0.0 /100WBC 04/17/23 17:51 Sodium 137 mmol/L (136-145) 04/17/23 17:51 Potassium 4.1 mmol/L (3.5-5.1) 04/17/23 17:51 Chloride 103 mmol/L (98-107) 04/17/23 17:51 Carbon Dioxide 23 mmol/L (22-29) 04/17/23 17:51 Anion Gap 15.1 (5-19) 04/17/23 17:51 BUN 10 mg/dL (6-20) 04/17/23 17:51 Creatinine 0.8 mg/dL (0.7-1.2) 04/17/23 17:51 GFR Calculation 117.8 mL/min (90-130) 04/17/23 17:51 Glucose 86 mg/dL (65-115) 04/17/23 17:51 Calculated Osmolality 282 mOsm/kg (285-295) L 04/17/23 17:51 Calcium 8.9 mg/dL (8.5-10.5) 04/17/23 17:51 Total Bilirubin 0.7 mg/dL (0.15-1.2) 04/17/23 17:51 AST 14 U/L (0-40) 04/17/23 17:51 ALT 10 U/L (0-41) 04/17/23 17:51 Alkaline Phosphatase 57 U/L (40-130) 04/17/23 17:51 Troponin T Gen 5 ng/L 6 ng/L (0-15) 04/17/23 17:51 Total Protein 6.6 g/dL (6.6-8.7) 04/17/23 17:51 Albumin 4.4 g/dL (3.5-5.2) 04/17/23 17:51 Globulin 2.2 g/dL (1.3-4.6) 04/17/23 17:51 EKG Data EKG 1: EKG interpretation date: 04/17/23 EKG interpretation time: 17:25 Prior EKG tracings: available for review (04/07/23) Interpretation: EKG shows a sinus rhythm with a regular rate at 70 bpm. Early repolarization is noted on the EKG which may be normal for age. No other ectopy is noted. When compared to prior exam from 04/07/2023 computer interprets a first-degree AV block now present and early repolarization now present. Computer generated interpretation: Sinus rhythm with first-degree AV block and computer repolarization. Discharge Plan Discharge Patient Disposition: Home Clinical Impression: Adverse reaction to drug Benign paroxysmal positional vertigo Qualifiers: Laterality: unspecified laterality Qualified Code(s): H81.10 - Benign paroxysmal vertigo, unspecified ear Condition: Stable Prescriptions: No Action losartan 50 mg tablet 50 mg PO DAILY Qty: 30 0RF Discharge Orders: Discharge ED (Routine); Ordered 04/17/23 Ordered By: Maximo Bermudez Referrals: Tristin Martinez MD [Primary Care Provider] - Discharge Diet: Usual diet Discharge Activity: Increase activity as tolerated Patient Instructions: Hypertension (ED) Activity Restrictions/Additional Instructions: Break losartan tablet in half and take 1/2 tablet daily. Change positions slowly as this medication can increase your susceptibility to dizziness and lightheadedness. Sudden changes will cause the blood pressure to drop making it feel like you are going to pass out. Also exposure to the heat may also make you more susceptible to the symptoms. Make sure to stay well-hydrated in the sun. Follow-up with primary care in 1 week for recheck. Return to ED for new concerns. Coding Level of Care Code ED Organic Gardening Teacher for Nik Marquez
[2023-04-17 17:37] VITALS: BP 112/56; BP 112/66; BP 120/62; PULSE 67; PULSE 69; PULSE 75
[2023-04-17 17:39] VITALS: BP 112/66; PULSE 52; RESP 18; O2SAT 95
[2023-04-17 18:29] LABS: Basophils % 0.3 %; Eosinophils % 0.1 %; Hematocrit 42.6 % (42.0-52.0); Hemoglobin 15.3 g/dL (11.7-16.6); Lymphocytes # 1.2 10^3/uL (0.8-4.8); Lymphocytes % 15.6 %; Mean Corpuscular HGB Conc 35.9 g/dL (30.0-36.0); Mean Corpuscular Hemoglobin 33.3 pg (28.0-34.0); Mean Corpuscular Volume 92.6 fl (80-94); Monocytes # 0.4 10^3/uL (0.2-0.9); Monocytes % 5.6 %; Neutrophils # 6.04 10^3/uL (1.8-7.7); Nucleated Red Blood Cells % 0 %; Platelet Count 137 10^3/cmm (130-400); Red Cell Distribution Width 11.6 % (12.1-15.1); White Blood Count 7.7 10^3/uL (4.0-10.0)
[2023-04-17 18:35] VITALS: BP 108/60; PULSE 52; RESP 16; O2SAT 98
[2023-04-17 18:45] LABS: Troponin T (5th) Once 6 ng/L (0-15)
[2023-04-17 18:46] LABS: Alanine Aminotransferase 10 U/L (0-41); Albumin Level 4.4 g/dL (3.5-5.2); Alkaline Phosphatase 57 U/L (40-130); Anion Gap 15.1 (5-19); Aspartate Amino Transferase 14 U/L (0-40); Blood Urea Nitrogen 10 mg/dL (6-20); Calcium 8.9 mg/dL (8.5-10.5); Carbon Dioxide 23 mmol/L (22-29); Chloride 103 mmol/L (98-107); Globulin 2.2 g/dL (1.3-4.6); Glomerular Filtration Rate 117.8 mL/min (90-130); Glucose 86 mg/dL (65-115); Osmolality Calculated 282 mOsm/kg (285-295); Potassium 4.1 mmol/L (3.5-5.1); Sodium 137 mmol/L (136-145); Total Bilirubin 0.7 mg/dL (0.15-1.2); Total Protein 6.6 g/dL (6.6-8.7)
[2023-04-17 19:30] VITALS: BP 114/50; PULSE 52; RESP 16; TEMP 36.7; O2SAT 98
== END 2023-04-17 19:43 | disposition home or self-care (01) ==
PROVIDERS: Emergency Provider Nurse Practitioner Family; PCP Family Medicine
DX: T46.5X1A Poisoning by other antihypertensive drugs, accidental (unintentional), initial encounter (principal); R00.2 Palpitations; R53.1 Weakness; H81.10 Benign paroxysmal vertigo, unspecified ear; I44.0 Atrioventricular block, first degree
CPT/HCPCS: 36415; 80053; 84484; 85025; 93005; 99285

== ENCOUNTER 2023-05-17 13:24 | Emergency (ER) | payer BC, MEDICAID, SELFPAY ==
[2023-05-17 13:28] VITALS: BP 83/46; PULSE 68; RESP 19; TEMP 36.8; O2SAT 97; BMI 19.6
--- NOTE | 2023-05-17 13:52 | ECG_ITS ---
[facility] Test Date: 2023-05-17 Pat Name: Omar Murphy Department: Room: Gender: Male Other Sports Official: : 1995 Requested By: Ta Sanchez Order Number: [id number] Gisele MD: Judith Gunter M.D. Measurements Intervals [place] Rate: 68 P: 57 IA: 175 QRS: 71 QRSD: 93 T: 66 QT: 377 QTc: 402 Interpretive Statements SINUS RHYTHM WITH SINUS ARRHYTHMIA EARLY REPOLARIZATION [ST ELEVATION WITH NORMALLY INFLECTED T-WAVE] Compared to ECG 04/17/2023 13:17:14 First degree AV block no longer present Electronically Signed On 05-17-2023 18:17:13 CDT by Judith Gunter M.D. [id number]
--- NOTE | 2023-05-17 13:53 | XR_ITS ---
WS: [id number] EXAMINATION: XR chest 1V portable [id number] REASON FOR EXAM: seizure COMPARISON: 04/07/2023 ORDER DATE: 05/17/2023 2:02 PM TECHNIQUE: A single, portable frontal chest x-ray was obtained. X-RAY FINDINGS: The lungs are clear. Pleural spaces are clear. No pleural effusions or pneumothorax. Cardiomediastinal silhouette is normal. No evidence for pulmonary edema. Soft tissue and osseous structures are unremarkable. No tubes or lines are present. IMPRESSION: Unremarkable frontal portable chest x-ray.
--- NOTE | 2023-05-17 13:53 | CT_ITS ---
WS: [id number] CT HEAD TECHNIQUE: Noncontrast CT of the head obtained from the skullbase to the vertex. CLINICAL INFORMATION: seizure COMPARISON: CT 11/01/2020 DLP: 1092.[address] scans at [facility] use at least one of these dose optimization techniques: automated e xposure control; mA and/or kV adjustment per patient size (includes targeted exams where dose is matc hed to clinical indication); or iterative reconstruction. FINDINGS: No evidence of intracranial hemorrhage or mass effect. Ventricular system and basal cisterns are lloyd nt. No extra-axial fluid collections. No evidence of mass or mass effect. Normal meng-white different iation. Paranasal sinuses and mastoid air cells are well aerated. .Normal visualized soft tissues. IMPRESSION: 1. No evidence of intracranial hemorrhage or mass effect. 2. No acute intracranial findings.
--- NOTE | 2023-05-17 13:55 | ED_ITS ---
HPI - Seizure General: Chief Complaint: Seizure Stated Complaint: weak, dizzy, adb/chest pain Time Seen by Provider: 05/17/23 13:50 History of Present Illness: HPI Narrative: Patient has seizure upon arrival to the ER. Patient had a seizure lasted about 3 minutes. He was lethargic postictal and diaphoretic. Patient complains of nausea vomiting. Patient has been seen a couple times here in the ER for bradycardic episodes. Patient just returned Holter monitor about 5 days ago and that was ordered through the ER for these episodes. Patient does not have a history of seizures. The only medicine the patient is on is losartan 50 mg for his blood pressure. Blood pressure today upon arrival was 83/46 heart rate of 68 respirations of 19. Review of Systems General: Reports: 10 or more systems reviewed and unremarkable except in HPI and below PFSH ED PFSH: Social History Smoking and tobacco status: never smoked Alcohol intake: never Substance/Drug Use: never Physical Exam Const: COMMON NORMALS: no acute distress, average body habitus, patient oriented x3, no limitations, healthy appearing, alert and well nourished HENMT: COMMON NORMALS: normocephalic, atraumatic, hearing grossly normal bilaterally, external ears normal, Normal external nose present and moist oral mucous membranes HEAD & SCALP: normocephalic and atraumatic NOSE: Normal external nose present EXTERNAL EAR: Yes external ears normal Eye: COMMON NORMALS: Equal, round and reactive pupils present, EOMs intact bilaterally, conjunctivae normal and no scleral icterus CONJUNCTIVA: Yes conjunctivae normal PUPIL: Yes Equal, round and reactive pupils present Neck/C-Spine: COMMON NORMALS: full ROM, no lymphadenopathy, supple, no meningeal signs, no JVD and Thyroid normal THYROID: Thyroid normal Lymph: LYMPHATIC: no lymphadenopathy noted and no lymphedema noted Chest: COMMONS NORMALS: normal inspection of the chest and normal palpation of entire chest wall Resp: COMMON NORMALS: normal respiratory effort, No retractions, No use of accessory muscles and clear to auscultation bilaterally AUSCULTATION: clear to auscultation bilaterally Cardio: COMMON NORMALS: no JVD, regular rate, regular rhythm, S1 normal heart sound present, S2 normal heart sound present, No gallops present (Cardio), No clicks present (Cardio), No murmurs present (Cardio) and No rub (Cardio) RATE: regular rate RHYTHM: regular rhythm HEART SOUNDS: S1 normal heart sound present and S2 normal heart sound present GI: COMMON NORMALS: Normal to inspection, nondistended, normoactive bowel sounds present, Soft to palpation, non-tender, No hepatosplenomegaly present and no masses PALPATION: Yes Soft to palpation and Yes No hepatosplenomegaly present : COMMON NORMALS: Yes no CVA tenderness BLADDER/KIDNEY EXAM: Yes no CVA tenderness Back/Pelvis: COMMON NORMALS: no CVA tenderness Neuro: COMMON NORMALS: patient oriented x3 SENSORIUM/ORIENTATION: Yes alert MENINGEAL SIGNS: Yes no meningeal signs Course Vital Signs: Vital signs: Vital Signs Temperature 98.2 F 05/17/23 13:28 Pulse Rate 53 L 05/17/23 14:45 Respiratory Rate 17 05/17/23 14:45 Blood Pressure 108/63 05/17/23 14:45 Pulse Oximetry 100 05/17/23 14:45 Oxygen Delivery Me thod Room Air 05/17/23 13:28 MDM - Seizure MDM Narrative Medical decision making narrative: Patient arrived to the ER by POV and while waiting out in the waiting room had a witnessed seizure. Patient was brought back to the room where he had a seizure work-up that included lab work urine and a CT scan. All of which was essentially benign except benzos in his urine that was given to him by us, marijuana in his system, and an elevated prolactin. Patient will be discharged home. Case management will be consulted to refer patient to neurology for further evaluation and treatment. Differential Diagnosis Seizure Differential Diagnosis: Likely new onset seizure; Unlikely intractable seizure disorder, febrile convulsion, focal seizure, generalized seizure, epileptic seizure or status epilepticus Medical Records Attestation: I reviewed the patient's medical records. Lab Data Attestation: I reviewed the patient's lab results. 05/17/23 13:58 05/17/23 13:58 Labs: Laboratory Results WBC 9.86 10^3/uL (3.29-11.43) 05/17/23 13:58 RBC 5.25 10^6/uL (3.85-5.65) 05/17/23 13:58 Hgb 16.80 g/dL (11.27-16.99) 05/17/23 13:58 Hct 47.0 % (37-53) 05/17/23 13:58 MCV 89.5 fl (82-101) 05/17/23 13:58 MCH 32.0 pg (27-33) 05/17/23 13:58 MCHC 35.7 g/dL (30-55) 05/17/23 13:58 RDW 10.8 % (12.1-15.1) L 05/17/23 13:58 Plt Count 168 10^3/cmm (157-399) 05/17/23 13:58 MPV 10.7 fL (7.4-10.4) H 05/17/23 13:58 Neut % (Auto) 66.4 % 05/17/23 13:58 Lymph % (Auto) 27.3 % 05/17/23 13:58 [place] % (Auto) 5.5 % 05/17/23 13:58 Eos % (Auto) 0.3 % 05/17/23 13:58 Baso % (Auto) 0.3 % 05/17/23 13:58 Neut # (Auto) 6.55 10^3/uL (1.8-7.7) 05/17/23 13:58 Lymph # (Auto) 2.7 10^3/uL (0.8-4.8) 05/17/23 13:58 [place] # (Auto) 0.5 10^3/uL (0.2-0.9) 05/17/23 13:58 Eos # (Auto) 0.0 10^3/uL (0.0-0.8) 05/17/23 13:58 Baso # (Auto) 0.0 10^3/uL (0.0-0.1) 05/17/23 13:58 Nucleated RBC % (auto) 0 % 05/17/23 13:58 Nucleated RBCs # 0.0 /100WBC 05/17/23 13:58 Sodium 137 mmol/L (136-145) 05/17/23 13:58 Potassium 3.7 mmol/L (3.5-5.1) 05/17/23 13:58 Chloride 101 mmol/L (98-107) 05/17/23 13:58 Carbon Dioxide 25 mmol/L (22-29) 05/17/23 13:58 Anion Gap 14.7 (5-19) 05/17/23 13:58 BUN 13 mg/dL (6-20) 05/17/23 13:58 Creatinine 0.9 mg/dL (0.7-1.2) 05/17/23 13:58 GFR Calculation 102.8 mL/min (90-130) 05/17/23 13:58 Glucose 120 mg/dL (65-115) H 05/17/23 13:58 Calculated Osmolality 285 mOsm/kg (285-295) 05/17/23 13:58 Calcium 9.5 mg/dL (8.5-10.5) 05/17/23 13:58 Magnesium 2.1 mg/dL (1.7-2.3) 05/17/23 13:58 Total Bilirubin 0.8 mg/dL (0.15-1.2) 05/17/23 13:58 AST 13 U/L (0-40) 05/17/23 13:58 ALT 10 U/L (0-41) 05/17/23 13:58 Alkaline Phosphatase 70 U/L (40-130) 05/17/23 13:58 C-Reactive Protein 3.0 mg/L (0.0-4.9) 05/17/23 13:58 Total Protein 7.6 g/dL (6.6-8.7) 05/17/23 13:58 Albumin 4.9 g/dL (3.5-5.2) 05/17/23 13:58 Globulin 2.7 g/dL (1.3-4.6) 05/17/23 13:58 TSH 0.70 uIU/mL (0.27-4.20) 05/17/23 13:58 Prolactin 57.38 ng/mL (4.0-15.2) H 05/17/23 13:58 Urine Color Yellow (Yellow) 05/17/23 16:45 Urine Appearance Cloudy (CLEAR) A 05/17/23 16:45 Urine pH 8 (5-7) H 05/17/23 16:45 Ur Specific [place] 1.010 (1.005-1.030) 05/17/23 16:45 Urine Protein Neg (Negative) 05/17/23 16:45 Urine Glucose (UA) Norm (Normal) 05/17/23 16:45 Urine Ketones 1+ (Negative) H 05/17/23 16:45 Urine Blood Neg (Negative) 05/17/23 16:45 Urine Nitrate Negative (Negative) 05/17/23 16:45 Urine Bilirubin Neg (Negative) 05/17/23 16:45 Prot Sulfosalicylic Acd Negative (Negative) 05/17/23 16:45 Urine Urobilinogen 1 mg/dL (Negative) H 05/17/23 16:45 Ur Leukocyte Esterase Trace (Negative) H 05/17/23 16:45 Urine RBC 0-4 /hpf (0-2) H 05/17/23 16:45 Urine WBC 0-4 /hpf (0-5) H 05/17/23 16:45 Ur Squamous Epith Cells 0-4 /hpf (0-5) H 05/17/23 16:45 Amorphous Sediment 3+ /hpf 05/17/23 16:45 Urine Bacteria None /hpf (NONE) 05/17/23 16:45 Urine Mucus 2+ /hpf 05/17/23 16:45 Urine Opiates Screen Negative ng/mL (Negative) 05/17/23 16:45 Ur Barbiturates Screen Negative ng/mL (Negative) 05/17/23 16:45 Ur Phencyclidine Scrn Negative ng/mL (Negative) 05/17/23 16:45 Ur Amphetamines Screen Negative ng/mL (Negative) 05/17/23 16:45 U Benzodiazepines Scrn Positive ng/mL (Negative) H 05/17/23 16:45 Urine Cocaine Screen Negative ng/mL (Negative) 05/17/23 16:45 U Marijuana (THC) Screen Positive ng/mL (Negative) H 05/17/23 16:45 EKG Data EKG 1: Attestation: I personally reviewed and interpreted this EKG as follows: EKG interpretation date: 05/17/23 EKG interpretation time: 14:19 Prior EKG tracings: not available for review Interpretation: EKG showed ventricular rate 68 bpm, VA interval 175, QRS duration 93, QTc of 3 94, sinus rhythm with sinus arrhythmia, early repolarization, Discharge Plan Discharge Patient Disposition: Home Clinical Impression: Observed seizure-like activity Condition: Stable Prescriptions: No Action omeprazole 20 mg Capsule,Delayed Release(Dr/Ec) 20 mg PO BID sertraline 50 mg Tablet 50 mg PO DAILY losartan 50 mg tablet 25 mg PO DAILY Discharge Orders: Discharge ED (Routine); Ordered 05/17/23 Ordered By: Ta Sanchez Referrals: Tristin Martinez MD [Primary Care Provider] - Patient Instructions: Seizures Activity Restrictions/Additional Instructions: Please follow-up with your family practice physician within the next week for further evaluation and treatment. You have been referred to case management to get a referral to neurology for further evaluation and treatment of your seizure-like activity. They will probably call you in the morning to arrange this if they have not called you in 2 business days please feel free to call them. Coding Level of Care Code ED Obstetrics/Gynecology Nurse for Nik Marquez
[2023-05-17 14:05] LABS: Basophils % 0.3 %; Eosinophils % 0.3 %; Lymphocytes # 2.7 10^3/uL (0.8-4.8); Lymphocytes % 27.3 %; Mean Corpuscular HGB Conc 35.7 g/dL (30-55); Mean Corpuscular Volume 89.5 fl (82-101); Mean Platelet Volume 10.7 fL (7.4-10.4); Monocytes # 0.5 10^3/uL (0.2-0.9); Monocytes % 5.5 %; Neutrophils # 6.55 10^3/uL (1.8-7.7); Neutrophils % 66.4 %; Nucleated Red Blood Cells % 0 %; Platelet Count 168 10^3/cmm (157-399); Red Blood Count 5.25 10^6/uL (3.85-5.65); Red Cell Distribution Width 10.8 % (12.1-15.1); White Blood Count 9.86 10^3/uL (3.29-11.43)
[2023-05-17] MEDS: LORazepam 2 mg/mL INJ 1 mL 1 MG IVP (14:12)
[2023-05-17] MEDS: sodium chloride 0.9% 1,000 ML 999 ML IV (14:15)
[2023-05-17 14:25] LABS: Alanine Aminotransferase 10 U/L (0-41); Albumin Level 4.9 g/dL (3.5-5.2); Alkaline Phosphatase 70 U/L (40-130); Anion Gap 14.7 (5-19); Aspartate Amino Transferase 13 U/L (0-40); Blood Urea Nitrogen 13 mg/dL (6-20); Calcium 9.5 mg/dL (8.5-10.5); Carbon Dioxide 25 mmol/L (22-29); Chloride 101 mmol/L (98-107); Globulin 2.7 g/dL (1.3-4.6); Glomerular Filtration Rate 102.8 mL/min (90-130); Glucose 120 mg/dL (65-115); Magnesium 2.1 mg/dL (1.7-2.3); Osmolality Calculated 285 mOsm/kg (285-295); Potassium 3.7 mmol/L (3.5-5.1); Sodium 137 mmol/L (136-145); Total Bilirubin 0.8 mg/dL (0.15-1.2); Total Protein 7.6 g/dL (6.6-8.7)
[2023-05-17 14:31] LABS: Prolactin 57.38 ng/mL (4.0-15.2)
[2023-05-17 14:45] VITALS: BP 108/63; PULSE 53; RESP 17; O2SAT 100
[2023-05-17 17:05] LABS: Urine Appearance Cloudy (CLEAR); Urine Color Yellow (Yellow)
[2023-05-17 17:06] LABS: Add Urine Microscopic? YES; Bilirubin Urine Neg (Negative); Blood Urine Neg (Negative); Glucose Urine UA Norm (Normal); Ketones Urine 1+ (Negative); Leukocyte Esterase Urine Trace (Negative); Nitrate Urine Negative (Negative); Protein Urine Neg (Negative); RBC Urine 0-4 /hpf (0-2); Squamous Epithelial Cell Urine 0-4 /hpf (0-5); Sulfosalicylic Acid Urine Negative (Negative); Urobilinogen Urine 1 mg/dL (Negative); WBC Urine 0-4 /hpf (0-5); pH Urine 8 (5-7)
[2023-05-17 17:07] LABS: Add Urine Culture? No; Amorphous Sediment Urine 3+ /hpf; Mucus Urine 2+ /hpf
[2023-05-17 17:09] LABS: Amphetamines Screen Urine Negative (Negative); Barbiturates Screen Urine Negative (Negative); Benzodiazepines Screen Urine Positive (Negative); Cocaine Screen Urine Negative (Negative); Opiate Screen Urine Negative (Negative); PCP Screen Urine Negative (Negative); THC Screen Urine Positive (Negative)
--- NOTE | 2023-05-20 10:42 | DCPLANNER ---
Addendum entered by Lilian Clark 05/24/23 10:39: Patient did attend this appointment with neurology Addendum entered by Lilian Clark 05/21/23 14:10: Patient has a follow up appointment scheduled for April at 3:[address] Magana at neurology. Original Note: manager skilled had message to schedule a follow up appointment for patient for neurology. manager skilled sent patients information to the front office staff at neurology. Patients information will be printed and reviewed. Clinic will call patient with appointment information.
== END 2023-05-17 17:44 | disposition home or self-care (01) ==
PROVIDERS: Emergency Provider Emergency Medicine; PCP Family Medicine
DX: R56.9 Unspecified convulsions (principal)
CPT/HCPCS: 70450; 71045; 80053; 80306; 81001; 83735; 84146; 84443; 85025; 86140; 93005; 96374; 99285; J2060; J7030

== ENCOUNTER → 2023-05-23 16:56 | Outpatient (BNVA) | payer BC, MEDICAID, SELFPAY | PROVIDERS: PCP Family Medicine; Visit Provider Specialist | DX: R56.9 Unspecified convulsions (principal); R55 Syncope and collapse; R00.1 Bradycardia, unspecified; R63.4 Abnormal weight loss; I10 Essential (primary) hypertension | CPT/HCPCS: 36415; 84439; 84443; 84481 ==

== ENCOUNTER 2023-06-20 12:03 | Outpatient (CLI) | payer BC, MEDICAID, SELFPAY ==
--- NOTE | 2023-06-20 12:00 | USCV_ITS ---
[facility] 27 Gender: M : 1995 Exam Date: 06/20/2023 12:15 Ordering Phys: Judith Gunter MD ([email or web address]) Technologist: Nikos Koch [place] [facility] [place]ication: chest pain BP: 130 / 80 HR: 68 Rhythm: Sinus Technical Quality: Adequate MEASUREMENTS (Male / Female) Normal Values 2D ECHO LVOT Diameter 2.2 cm LV Ejection Fraction MOD 2C 81.6 % LV Ejection Fraction 2C AL 82.3 % LA Diameter 3.5 cm M-MODE LV Diastolic Diameter MM 4.5 cm 4.2 - 5.9 / 3.9 - 5.3 cm LV Systolic Diameter MM 2.7 cm LV Ejection Fraction MM Teich 70.9 % IVS Diastolic Thickness MM 0.9 cm 0.6 - 1.0 / 0.6 - 0.9 cm IVS Systolic Thickness MM 1.8 cm LVPW Diastolic Thickness MM 1.6 cm 0.6 - 1.0 / 0.6 - 0.9 cm LVPW Systolic Thickness MM 1.8 cm RV Diastolic Diameter MM 1.3 cm Aortic Annulus Diameter 3.7 cm LA Ao Ratio MM 1.2 MV E Point Septal Separation 0.9 cm DOPPLER AV Peak Velocity 130.0 cm/s LVOT Peak Velocity 97.0 cm/s AV Area Cont Eq vti 3.0 cm squared AV Area Cont Eq pk 2.9 cm squared MV Area PHT 5.0 cm squared Mitral E to A Ratio 2.0 MV E' Velocity 82.0 cm/s Mitral E to MV E' Ratio 8.2 Mitral E to LV E' Lateral Ratio 7.7 Mitral E to LV E' Septal Ratio 8.8 TR Peak Velocity 153.3 cm/s TR Peak Gradient 9.4 mmHg TV Peak E Velocity 105.0 cm/s Right Atrial Pressure 3.0 mmHg Pulmonary Artery Systolic Pressu 12.4 mmHg RV Acceleration Time 0.2 s FINDINGS Left Ventricle Normal left ventricular size and systolic function, EF 80 %. No regional wall motion abnormalities. Right Ventricle The right ventricle is normal in size and function. Right Atrium The right atrium is normal in size. Left Atrium The left atrium is normal in size. Mitral Valve Structurally normal mitral valve without significant stenosis or prolapse. There is no mitral regurgitation. Aortic Valve Tricuspid with no gross abnormalities Tricuspid Valve Trace tricuspid valve regurgitation. Pulmonic Valve Structurally normal pulmonic valve without significant stenosis. There is no pulmonic regurgitation. Pericardium Normal pericardium without effusion. Aorta Normal ascending aorta dimension. IVC The inferior vena cava appears normal. CONCLUSIONS Normal left ventricular size and systolic function, EF 80 %. No regional wall motion abnormalities. Normal cardiac chamber sizes. No significant valvular abnormalities. No intracardiac shunts by color-flow Doppler examination . Trace tricuspid valve regurgitation. Estimated pulmonary artery peak systolic pressure within normal limits There is no pericardial effusion. There are no intracardiac masses. Compared to the study from 03/16/2016, there may not be significant change Dr Judith Gunter MD FACC (Electronically Signed) Final Date: 20 June 2023 17:59 S
== END 2023-06-20 12:04 | disposition home or self-care (01) ==
PROVIDERS: PCP Family Medicine; Visit Provider Internal Medicine Cardiovascular Disease
DX: R06.09 Other forms of dyspnea (principal)
CPT/HCPCS: 93306

== ENCOUNTER 2023-07-09 08:37 | Outpatient (CLI) | payer BC, MEDICAID, SELFPAY ==
[2023-07-14 11:19] LABS: Calculated Total (E+NE) 86 mcg/24 h (26-121)
== END 2023-07-09 08:38 | disposition home or self-care (01) ==
LOC: LAB 08:43
PROVIDERS: PCP Family Medicine; Visit Provider Specialist
DX: R63.4 Abnormal weight loss (principal); I10 Essential (primary) hypertension; R55 Syncope and collapse
CPT/HCPCS: 82384

== ENCOUNTER 2025-02-25 08:54 | Emergency (ER) | payer BC, MEDICAID, SELFPAY ==
[2025-02-25 08:55] VITALS: BP 135/74; PULSE 77; RESP 16; TEMP 36.5; O2SAT 98; BMI 21.7
--- NOTE | 2025-02-25 09:12 | W.ED.ABDPA2 ---
HPI - Abdominal Pain General: Chief Complaint: Abdominal Pain Stated Complaint: abd pain Time Seen by Provider: 02/25/25 08:57 History of Present Illness: 29-year-old male presents emergency room complaining of lower abdominal pain with nausea and diarrhea for the last 2 weeks. Is gotten progressively worse he believes he seen some worms in his stool last night has had very loose stool. No hematochezia or melena. He has been very nauseous but no vomiting no previous abdominal surgeries. No history of Crohn's ulcerative colitis irritable bowel. He has had seizures in the past but none recently. Associated Symptoms: Reports diarrhea and nausea; Denies chills, coffee ground emesis, dysuria, fever(s), hematochezia, hematemesis, melena and vomiting Related Data Home Medications ?Medication ?Instructions ?Recorded ?Confirmed losartan 50 mg tablet 25 mg PO DAILY 05/17/23 12/24/23 omeprazole 20 mg capsule,delayed 20 mg PO BID 05/17/23 12/24/23 release meloxicam 15 mg tablet 15 mg PO DAILY 11/12/23 12/24/23 venlafaxine 150 mg 150 mg PO DAILY 11/12/23 12/24/23 capsule,extended release 24 hr buspirone 10 mg tablet 10 mg PO BID 12/24/23 12/24/23 Previous Rx's ?Medication ?Instructions ?Recorded promethazine 25 mg tablet 25 mg PO Q6H PRN nausea and 02/25/25 vomiting #20 tabs Allergies Allergy/AdvReac Type Severity Reaction Status Date / Time No Known Allergies Allergy Verified 12/24/23 14:09 Review of Systems Const: Denies: fever(s) or chills Card: Denies: chest pain Resp: Denies: dyspnea GI: Reports: abdominal pain, nausea and diarrhea; Denies: vomiting, hematemesis, coffee ground emesis, hematochezia or melena : Denies: dysuria, urinary frequency or urinary urgency Musc: Denies: neck pain or back pain Skin/Breast: Denies: rash PFSH ED PFSH: Family History Mother Diabetes mellitus, type 2 Hypertension Father Hypertension CAD (coronary artery disease) Diabetes mellitus, type 2 Social History (Reviewed 02/25/25 @ 09:14 by DEWAYNE Chand Smoking and tobacco/nicotine status: current every day tobacco/nicotine user cigarettes Packs smoked per day: 0.5 Years cigarettes smoked: 12 [ Other cigarette details: quit 5 yrs ago & started back 1 yr ago] Second hand smoke exposure: Yes Alcohol intake: current Alcohol intake frequency: 0-2 Drinks per Day Alcohol type: hard liquor Substance/Drug Use: former 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 Physical Exam Const: COMMON NORMALS: no acute distress GENERAL APPEARANCE: cooperative and comfortable ORIENTATION/CONSCIOUSNESS: Yes awake, Yes oriented to person, Yes oriented to place and Yes oriented to time HENMT: COMMON NORMALS: normocephalic, atraumatic and hearing grossly normal bilaterally HEAD & SCALP: normocephalic and atraumatic Resp: COMMON NORMALS: normal respiratory effort, No retractions, No use of accessory muscles and clear to auscultation bilaterally AUSCULTATION: clear to auscultation bilaterally Cardio: COMMON NORMALS: regular rate, regular rhythm and No murmurs present (Cardio) RATE: regular rate RHYTHM: regular rhythm GI: COMMON NORMALS: Soft to palpation and No hepatosplenomegaly present AUSCULTATION: Yes normoactive bowel sounds PALPATION: Yes Soft to palpation, No Tenderness to palpation present (GI), No Guarding due to palpation present (GI) and Yes No hepatosplenomegaly present Extremity: COMMON NORMALS: normal to inspection, capillary refill normal, no clubbing, cyanosis or edema, no calf tenderness and no pedal edema Neuro: SENSORIUM/ORIENTATION: Yes oriented to person, Yes oriented to place and Yes oriented to time Skin: COMMON NORMALS: no rashes or lesions noted GENERAL SKIN EXAM: no rashes or lesions noted Course Vital Signs: Vital signs: Vital Signs Temperature 97.7 F 02/25/25 08:55 Pulse Rate 64 02/25/25 11:04 Respiratory Rate 17 02/25/25 09:31 Blood Pressure 107/66 02/25/25 11:04 Pulse Oximetry 95 02/25/25 11:04 Oxygen Delivery Me thod Room Air 02/25/25 08:55 MDM - Abdominal Pain Medical Decision Making Labs and imaging reviewed no leukocytosis chemistry panel unremarkable negative UA. Exam abdominal exam benign. Suspect gastroenteritis discussed findings with patient clear liquid diet then advance as tolerated. Return if has further symptoms or change of symptoms. Repeat abdominal exam prior to discharge remains benign Lab Data 02/25/25 09:06 02/25/25 09:06 Labs/Radiology: Laboratory Results WBC 10.30 10^3/uL (3.29-11.43) 02/25/25 09:06 RBC 5.36 10^6/uL (3.85-5.65) 02/25/25 09:06 Hgb 17.20 g/dL (11.27-16.99) H 02/25/25 09:06 Hct 47.8 % (37-53) 02/25/25 09:06 MCV 89.2 fl (82-101) 02/25/25 09:06 MCH 32.1 pg (27-33) 02/25/25 09:06 MCHC 36.0 g/dL (30-55) 02/25/25 09:06 RDW 10.8 % (12.1-15.1) L 02/25/25 09:06 Plt Count 143 10^3/cmm (157-399) L 02/25/25 09:06 MPV 10.4 fL (7.4-10.4) 02/25/25 09:06 Neut % (Auto) 52.5 % 02/25/25 09:06 Lymph % (Auto) 39.1 % 02/25/25 09:06 [place] % (Auto) 6.9 % 02/25/25 09:06 Eos % (Auto) 0.9 % 02/25/25 09:06 Baso % (Auto) 0.3 % 02/25/25 09:06 Neut # (Auto) 5.41 10^3/uL (1.8-7.7) 02/25/25 09:06 Lymph # (Auto) 4.0 10^3/uL (0.8-4.8) 02/25/25 09:06 [place] # (Auto) 0.7 10^3/uL (0.2-0.9) 02/25/25 09:06 Eos # (Auto) 0.1 10^3/uL (0.0-0.8) 02/25/25 09:06 Baso # (Auto) 0.0 10^3/uL (0.0-0.1) 02/25/25 09:06 Nucleated RBC % (auto) 0 % 02/25/25 09:06 Nucleated RBCs # 0.0 /100WBC 02/25/25 09:06 Sodium 139 mmol/L (136-145) 02/25/25 09:06 Potassium 4.0 mmol/L (3.5-5.1) 02/25/25 09:06 Chloride 103 mmol/L (98-107) 02/25/25 09:06 Carbon Dioxide 26 mmol/L (22-29) 02/25/25 09:06 Anion Gap 14.0 (5-19) 02/25/25 09:06 BUN 15 mg/dL (6-20) 02/25/25 09:06 Creatinine 0.9 mg/dL (0.7-1.2) 02/25/25 09:06 GFR Calculation 101.2 mL/min (90-130) 02/25/25 09:06 Glucose 90 mg/dL (65-115) 02/25/25 09:06 Calculated Osmolality 288 mOsm/kg (285-295) 02/25/25 09:06 Calcium 9.6 mg/dL (8.5-10.5) 02/25/25 09:06 Total Bilirubin 0.2 mg/dL (0.15-1.2) 02/25/25 09:06 AST 16 U/L (0-40) 02/25/25 09:06 ALT 14 U/L (0-41) 02/25/25 09:06 Alkaline Phosphatase 74 U/L (40-130) 02/25/25 09:06 Total Protein 7.0 g/dL (6.6-8.7) 02/25/25 09:06 Albumin 4.5 g/dL (3.5-5.2) 02/25/25 09:06 Globulin 2.5 g/dL (1.3-4.6) 02/25/25 09:06 Lipase 32 U/L (13-60) 02/25/25 09:06 Urine Color Yellow (Yellow) 02/25/25 09:51 Urine Appearance Clear (CLEAR) 02/25/25 09:51 Urine pH 6.0 (5-7) 02/25/25 09:51 Ur Specific [place] 1.015 (1.005-1.030) 02/25/25 09:51 Urine Protein Negative (Negative) 02/25/25 09:51 Urine Glucose (UA) Negative (Normal) 02/25/25 09:51 Urine Ketones Negative (Negative) 02/25/25 09:51 Urine Blood Negative (Negative) 02/25/25 09:51 Urine Nitrate Negative (Negative) 02/25/25 09:51 Urine Bilirubin Negative (Negative) 02/25/25 09:51 Urine Urobilinogen 1.0 mg/dL (Negative) 02/25/25 09:51 Ur Leukocyte Esterase Negative (Negative) 02/25/25 09:51 Urine RBC 0-2 /hpf (0-2) 02/25/25 09:51 Urine WBC 0-5 /hpf (0-5) 02/25/25 09:51 Ur Squamous Epith Cells 0-5 /hpf (0-5) 02/25/25 09:51 Amorphous Sediment Not Reportable 02/25/25 09:51 Urine Bacteria None seen /hpf (NONE) 02/25/25 09:51 Hyaline Casts 0-4 /lpf H 02/25/25 09:51 No radiology studies performed this visit Discharge Plan Discharge Patient Disposition: Home Clinical Impression: Abdominal pain, Gastroenteritis Condition: Stable Prescriptions: New promethazine 25 mg tablet 25 mg PO Q6H PRN (Reason: nausea and vomiting) Qty: 20 0RF No Action meloxicam 15 mg tablet 15 mg PO DAILY venlafaxine 150 mg capsule,extended release 24hr 150 mg PO DAILY buspirone 10 mg tablet 10 mg PO BID Rx Instructions: 1 tab once a day omeprazole 20 mg Capsule,Delayed Release(Dr/Ec) 20 mg PO BID losartan 50 mg tablet 25 mg PO DAILY Discharge Orders: Discharge ED (Routine); Ordered 02/25/25 Ordered By: Kaushik Sykes Referrals: Tristin Martinez MD [Primary Care Provider, Family Practice] Discharge Diet: Clear Liquid Discharge Activity: Resume usual activity Patient Instructions: Abdominal Pain (ED), Opioid Safety, Pain Management Activity Restrictions/Additional Instructions: Thank you for choosing [facility] for your healthcare needs today. It is very important that you follow up as instructed or that you return to the Emergency Department should you have concerns or if your condition changes or worsens in any way. You were seen in the emergency room with complaint of abdominal discomfort. Laboratory tests did not show significant abnormality recommend clear liquid diet for the next 1 to 2 days and advance as tolerated you are given promethazine to use as needed for nausea or vomiting. If symptoms persist follow-up with your primary care doctor Print Language: Luxembourgish Coding Level of Care Code ED Link Cutter for Nik Marquez
[2025-02-25 09:13] LABS: Basophils % 0.3 %; Eosinophils # 0.1 10^3/uL (0.0-0.8); Eosinophils % 0.9 %; Hematocrit 47.8 % (37-53); Lymphocytes % 39.1 %; Mean Corpuscular Hemoglobin 32.1 pg (27-33); Mean Corpuscular Volume 89.2 fl (82-101); Mean Platelet Volume 10.4 fL (7.4-10.4); Monocytes # 0.7 10^3/uL (0.2-0.9); Monocytes % 6.9 %; Neutrophils # 5.41 10^3/uL (1.8-7.7); Neutrophils % 52.5 %; Nucleated Red Blood Cells % 0 %; Platelet Count 143 10^3/cmm (157-399); Red Blood Count 5.36 10^6/uL (3.85-5.65); Red Cell Distribution Width 10.8 % (12.1-15.1)
[2025-02-25 09:31] VITALS: BP 121/74; RESP 17; O2SAT 96
[2025-02-25 09:31] LABS: Alanine Aminotransferase 14 U/L (0-41); Albumin Level 4.5 g/dL (3.5-5.2); Alkaline Phosphatase 74 U/L (40-130); Aspartate Amino Transferase 16 U/L (0-40); Blood Urea Nitrogen 15 mg/dL (6-20); Calcium 9.6 mg/dL (8.5-10.5); Carbon Dioxide 26 mmol/L (22-29); Chloride 103 mmol/L (98-107); Creatinine Clr Calc Pharmacy 131.8159; Globulin 2.5 g/dL (1.3-4.6); Glomerular Filtration Rate 101.2 mL/min (90-130); Glucose 90 mg/dL (65-115); Lipase 32 U/L (13-60); Osmolality Calculated 288 mOsm/kg (285-295); Sodium 139 mmol/L (136-145); Total Bilirubin 0.2 mg/dL (0.15-1.2)
[2025-02-25 10:16] LABS: Bilirubin Urine Negative (Negative); Blood Urine Negative (Negative); Glucose Urine UA Negative (Normal); Ketones Urine Negative (Negative); Leukocyte Esterase Urine Negative (Negative); Nitrate Urine Negative (Negative); Protein Urine Negative (Negative); Specific Gravity, Urine 1.015 (1.005-1.030); Urine Appearance Clear (CLEAR); Urine Color Yellow (Yellow)
[2025-02-25 10:21] LABS: Add Urine Microscopic? YES; Bacteria Urine None Seen /hpf; Hyaline Casts Urine 0-4 /lpf; RBC Urine 0-2 /hpf (0-2); Squamous Epithelial Cell Urine 0-5 /hpf (0-5); WBC Urine 0-5 /hpf (0-5)
[2025-02-25 11:04] VITALS: BP 107/66; PULSE 64; O2SAT 95
== END 2025-02-25 11:07 | disposition home or self-care (01) ==
PROVIDERS: Emergency Provider Family Medicine; PCP Family Medicine
DX: R10.30 Lower abdominal pain, unspecified (principal); K52.9 Noninfective gastroenteritis and colitis, unspecified; F17.210 Nicotine dependence, cigarettes, uncomplicated
CPT/HCPCS: 36415; 80053; 81001; 83690; 85025; 99283